=== PATIENT | female | born 1995 | race Caucasian/White ===

== ENCOUNTER 2024-10-22 11:34 | Emergency (ER) | payer OTHER, SELFPAY ==
[2024-10-22 11:37] VITALS: BP 154/96
[2024-10-22 12:23] LABS: Urine Albumin Negative (Neg - Trace); Urine Bilirubin Negative (Negative); Urine Character Clear (Clear); Urine Color Yellow; Urine Glucose Negative (Negative); Urine Ketone Negative (Negative); Urine Leukocyte Negative (Negative); Urine Nitrite Negative (Negative); Urine Occult Blood Negative (Negative); Urine Urobilinogen Negative (Neg - 1+)
[2024-10-22 12:28] LABS: HCG, Urine Qualitative Screen Negative
--- NOTE | 2024-10-22 12:29 | ED.GENMED ---
History of Present Illness
General
Chief Complaint: Crisis Evaluation
Source: patient and family
Time Seen by Provider: 10/22/24 12:01
History of Present Illness
History of Present Illness:
28-year-old female with past medical history of bipolar disorder/schizophrenia presenting to the emergency department for evaluation of reported increased depression and anxiety that has been ongoing for the last few weeks. Mother believes patient
stopped taking her Risperdal and Lamictal around 1 month ago which may be related to the patient's having difficulty filling the prescriptions and trying to take medications until refill is available. Patient is seeing a new psychiatrist at the
beginning of next week. Which will help with getting these medications filled. Patient has been also using PCP around 1-2 times per week which seems to exacerbate some of the patient's symptoms. Last use was last night. The patient notes that
she will often times have trouble sleeping which she states the Risperdal helped with however she did not like the way this made her feel in the morning. Patient ultimately stating she did not feel like the Lamictal and the respite all helped her
much to begin with in the first place. Patient has no physical concerns at this time other than she feels 'spaced out'.
Past History
Past History
ED Past Medical History: Psychiatric
ED Past Surgical History: None
Social History
Tobacco: Non-smoker
Alcohol: None
Drug: Other (PCP use)
Personal: Single
Living: with family
Review of Systems
Review of Systems
All Other Systems: ROS reviewed and negative except as documented in HPI and ROS
Phy Exam
Physical Exam
Physical Exam:
GENERAL: Alert , in no apparent distress
EYE: conjunctiva clear
Head: Normocephalic atraumatic
NECK: Supple,
ENT: mmm.
LUNGS: no acute respiratory distress
NEUROLOGICAL: Alert and oriented
SKIN: Warm and dry, skin intact.
MUSCULOSKELETAL: well perfused.
PSYCH: Normal and appropriate interaction.
Scores
Heart Failure Risk
Heart Failure Risk Score: Not Applicable
Heart Score for Chest Pain Patients
STEMI patient?: Not applicable
Withdrawal Assessment of Alcohol
Withdrawal Assessment Completed?: Not applicable
Course
Orders/Labs/Results
Orders:
Orders
10/22/24 11:55
Test Result ONCE
10/22/24 11:58
Beta Hcg Urine Qualitative Screen [HCG, Urine Qualitative Screen] Urgent
Date Specimen was Collected: 10/22/24
Time Specimen was Collected: 11:55
Fentanyl, Urine Urgent
Urinalysis Reflex To Culture Urgent
Date Specimen was Collected: 10/22/24
Time Specimen was Collected: 11:55
Urine Drug Abuse Screen Urgent
Date Specimen was Collected: 10/22/24
Time Specimen was Collected: 11:55
10/22/24 12:35
observation [ED Special Safety Observation] ONCE
Observation level: One to Two
10/22/24 14:36
Crisis Consult Urgent
Reason for Consult: Emergency Department evaluation for mental health complaints
Abnormal Lab Results
10/22/24
11:58
Ur Phencyclidine Scrn Positive H
(Negative)
Urine Cocaine Screen Positive H
(Negative)
Vital Signs
Initial and Last Documented VS:
Initial Vital Signs
Temp Pulse Resp BP Pulse Ox
98.1 F 71 16 154/96 97
10/22/24 11:37 10/22/24 11:37 10/22/24 11:37 10/22/24 11:37 10/22/24 11:37
Last Documented Vital Signs
Temp Pulse Resp BP Pulse Ox
98.1 F 71 16 154/96 97
10/22/24 11:37 10/22/24 11:37 10/22/24 11:37 10/22/24 11:37 10/22/24 11:37
MDM/Problems Addressed
Differential Diagnosis Includes:
Medication side effects, exacerbation of chronic schizophrenia/bipolar disorder, substance abuse
MDM/Problems Addressed:
28-year-old female presented to the ER for evaluation of increased depression and anxiety. Symptoms seem to correlate with patient trying to ration her medication but she also does admit she did not feel the medications were helping her very much.
There is also component of substance use which is a likely contributing factor to her symptoms today. Patient denying any SI/HI or hallucinations. No physical concerns at this time. Will order crisis consultation. I did also offer [facility] which
patient did seem to have some interest in. Disposition pending
Chronic conditions affecting care: Psychiatric illness
Acute Exacerbation and/or Progression of Chronic Illness: Psychiatric illness
*Pulse Oximetry
Patient hypoxic: no
*Critical Care Note
Total Time (30-74mins, 75-104mins- exclusive of procedures): Not Applicable
Patient Management
Escalation/DeEscalation of care consider admission/obs:
Cleared by crisis staff for d/c home and continued outpatient based therapies. Aware of return precautions to the ED
ED Attending Note
-
Portions of this chart may have been created with voice recognition software.� Occasional wrong word or��sound alike� substitutions may have occurred due to the inherent limitations of voice recognition software.
Discharge Plan
Departure
Patient Disposition: Home (Routine Discharge)
Date of Disposition: 10/22/24
Time of Disposition: 15:08
Patient with high blood pressure during this ER visit?: No
Discharge Problem:
Bipolar disorder, Substance abuse
Instructions: Drug and Alcohol Abuse Information
Referrals:
Merrick Robles, [Family Provider] -
Interventions
Interventions:
*Risk Screen - Suicide Last Done: 10/22/24 11:37
*General Assessment Last Done: 10/22/24 12:38
*Neglect/Abuse Screening Last Done: 10/22/24 11:37
*ED- Fall Risk Assessment Last Done: 10/22/24 11:52
*ED COVID-19 Vaccine History Last Done: 10/22/24 11:52
*Nursing Disposition Last Done: 10/22/24 15:57
ED-Psychological Assessment Last Done: 10/22/24 12:38
Discharge Date and Time
Discharge Date/Time: 10/22/24 16:12
Print Language: UKRAINIAN
[2024-10-22 12:36] LABS: Amphetamines Negative (Negative); Barbiturates Negative (Negative); Benzodiazepines Negative (Negative); Buprenorphine Negative (Negative); Cocaine Positive (Negative); Marijuana Negative (Negative); Methadone Negative (Negative); Methamphetamines Negative (Negative); Opiates Negative (Negative); Phencyclidine Positive (Negative); Tricyclic Antidepressants Negative (Negative)
[2024-10-22 12:59] LABS: Fentanyl, Urine Negative (Negative)
== END 2024-10-22 16:12 | disposition home or self-care (01) ==
LOC: EMR 11:34
PROVIDERS: EMERGENCY PHYSICIAN Student in an Organized Health Care Education/Training Program; FAMILY PHYSICIAN Family Medicine
DX: F31.9 Bipolar disorder, unspecified (principal); F19.10 Other psychoactive substance abuse, uncomplicated; F20.9 Schizophrenia, unspecified; F41.9 Anxiety disorder, unspecified
CPT/HCPCS: 99283; 80306; 80307; 81003; 81025